=== PATIENT | female | born 1955 | race Caucasian/White ===

== ENCOUNTER → 2016-10-29 | Outpatient (CLI) | payer OTHER ==
[~2016-10-29] MED LIST: AMLO-114 PO; CHOL100027 PO; FURO-85 PO; METO50TA16 PO; ZNT/150 PO
--- NOTE | 2016-10-29 17:14 | DIAGNOSTIC IMAGING REPORT ---
MRI brain BRAIN W/O FOR MS CLINICAL HISTORY: DEMYELINATING DISORDER mental status change TECHNIQUE: Multiaxial MRI acquisition COMPARISON STUDY: 03/05/2016 FINDINGS: Unchanged exam. No evidence for an acute ischemic process. FLAIR imaging demonstrates several very small subcortical foci of increased signal within the frontal lobe regions. These do not appear to be suggestive of a demyelinating disorder. Patient with a history of chronic headache versus age-related chronic small vessel change is more likely. The ventricular system is midline. Internal artery canals are symmetric. Structures the sella and parasellar region are unremarkable. IMPRESSION: 1. Findings of minimal chronic small vessel change/chronic headache.. 2. Otherwise normal study 3. No change from the prior exam. Electronically signed by: Naun Acharya M.D. 10/29/2016 5:13 PM Dictated Date/Time: 10/29/2016 5:09 PM
--- NOTE | 2016-10-29 17:34 | DIAGNOSTIC IMAGING REPORT ---
CERVICAL SPINE MRI HISTORY: Demyelinating disorder DEMYELINATING DISORDER TECHNIQUE: Multiplanar multisequence MRI of the cervical spine was performed without the use of contrast. COMPARISON STUDY: 03/05/2016 FINDINGS: No significant change from the prior study. Reversal of normal cervical curvature. Degenerative disc changes throughout. Mild reactive bone marrow edema at the C7-T1 vertebral bodies on a degenerative basis. Increased signal and of myelomalacia posterior lateral aspect of the cervical cord at C4-C5 unchanged in the prior study. No evidence for compression deformity. C2-C3: No significant central canal or neural foraminal narrowing. C3-C4: No significant central canal or neural foraminal narrowing. C4-C5: Mild broad-based bulging disc. Unchanged in the prior exam. Focal myelomalacia posterior lateral aspect of the thoracic cord at this level. This is unchanged. C5-C6: Broad-based bulging disc mildly posterior disc herniation with mild impact anterior aspect of the thoracic cord.. Unchanged from the prior study. No significant impact upon the cervical cord. C6-C7: Right base bulging disc also unchanged. C7-T1: Broad-based bulging disc unchanged T1-T2 broad-based left central disc herniation. Narrowing left neural foramina. Mild narrowing right neuroforamina. Unchanged from the prior study. IMPRESSION: 1. Unchanged exam from the prior study. 2. Multilevel bulging disc components with moderate multilevel narrowing of the neural foramina. 3. Focal area of myelomalacia posterior thoracic cord C4-C5 unchanged. 4. No new or interval process. Electronically signed by: Naun Acharya M.D. 10/29/2016 5:33 PM Dictated Date/Time: 10/29/2016 5:26 PM
== END | disposition home or self-care (01) ==
LOC: C.MRIBC 15:49
PROVIDERS: ATTEND Physician Assistant
DX: G37.9 Demyelinating disease of central nervous system, unspecified (principal); M47.12 Other spondylosis with myelopathy, cervical region; M47.22 Other spondylosis with radiculopathy, cervical region

== ENCOUNTER 2025-03-02 12:56 | Observation (INO) ==
--- NOTE | 2025-03-02 13:17 | Emergency Department Note ---
Impression & Plan Neurological symptoms, Hypertension ED Provider Note CHIEF COMPLAINT: Neurosymptoms HISTORY OF PRESENTING ILLNESS: The patient is a pleasant 69-year-old female with past medical history of MS, who arrives to the emergency department for evaluation neurosymptoms. The patient reports she began to have a right sided headache, behind the right eye 2 days ago. She states the symptoms seem to improve on the right side, however then this morning noted a shocking pain in the left upper extremity with a frontal headache. She reports her left upper extremity feels weak. She states she has a history of MS. she also reports shortness of breath with minimal exertion, such as walking, which is new. She reports no use of anticoagulation, she denies history of blood clots. She reports no chest pain, abdominal pain, nausea or vomiting. She denies fevers. She also reports her blood pressure has been high, and her PCP started her on a new blood pressure medication. She states when she had the symptoms, she contacted them and they informed her to discontinue this medication as they were concerned this may be the cause of her symptoms. She states it is difficult to determine if she has other neurodeficit due to her chronic weakness, and loss of sensation in her upper and lower extremities from her MS. She reports headache is constant, and aching. She states no pain currently in the left upper extremity. REVIEW OF SYSTEMS: See HPI for pertinent positives and pertinent negatives. ALLERGIES: See below MEDICATIONS: See below PAST MEDICAL HISTORY: See below PHYSICAL EXAM: VITALS: Vitals are noted on the nurse's note and reviewed by myself. Patient currently hypertensive, with otherwise stable vital signs. GENERAL: 69-year-old female, in no acute distress, nondiaphoretic, obese. SKIN: The skin was without rashes, erythema, edema, or bruising. HEAD: Normocephalic atraumatic. EYES: Pupils equal round and reactive to light and accommodation. Conjunctivae without injection, sclerae without icterus. Extraocular movements intact. MOUTH: Mucous membranes moist. No tonsillar hypertrophy. Pharynx without erythema or exudate. Uvula midline. Airway patent. Tongue does not deviate. NECK: Supple without nuchal rigidity. No lymphadenopathy. Cervical spine is nontender. No JVD. HEART: Regular rate and rhythm without murmurs gallops or rubs. LUNGS: Clear to auscultation bilaterally without wheezes, rales or rhonchi. No retractions or accessory muscle use. ABDOMEN: Positive bowel sounds x 4. Soft, nontender, without masses or organomegaly. Milian sign negative. No guarding or rebound tenderness. MUSCULOSKELETAL: No muscle atrophy, erythema, or edema noted. Strength 5/5 throughout. NEURO: Patient was alert and oriented to person place and time. No focal neurological deficits. NIHSS 2, dysarthria, and sensation. Patient has dysarthria at baseline due to patient being deaf. DIFFERENTIAL DIAGNOSIS: Infection, dehydration, metabolic abnormality, hypo/hyperglycemia, electrolyte disturbance, anemia, hypoxia, cardiac sources, intracerebral event, toxicologic, neurologic, MS flare, as well as other pathologies. ED COURSE AND MEDICAL DECISION MAKING: MEDICATIONS GIVEN: Lopressor 5 mg IVP MONITOR: Continuous patient monitor: Order was placed for continuous patient monitor. Patient was placed on the patient monitor and continuous pulse ox. Patient was noted to be in normal sinus rhythm at an initial rate of 67 bpm per my interpretation. EKG: EKG was interpreted by myself as normal sinus rhythm at a rate of 64 bpm, with a left anterior fascicular block, new from previous EKG performed on September 2014. INTERPRETATION OF LABS: I interpreted the labs with full lab results as below in the lab section of this note. Pertinent lab results discussed in the MDM section below. INTERPRETATION OF IMAGING: Imaging studies were interpreted by myself and read by radiology as per the imaging section of this note. CHRONIC MEDICAL/SOCIAL CONDITIONS AFFECTING CARE: Multiple sclerosis MDM SUMMARY: The patient is a pleasant, 69-year-old female who arrives to the emergency department for evaluation of the above-stated complaint. Saline lock was established, stroke workup was obtained. CBC shows no leukocytosis, no anemia. Coags within normal limits. CMP shows no concerning findings. Magnesium 1.9. Troponin 5.9. EKG per my interpretation as above. CT imaging of the head shows no acute findings. CTA imaging of the head and neck show no evidence of hemorrhage or mass effect, no other concerning findings. Chest CTA included in patient's workup due to complaint of shortness of breath with exertion, and patient would already be receiving contrast with head and neck CT imaging. CTA imaging of the chest shows no pulmonary embolism, no acute intrathoracic abnormality, and there is a small hiatal hernia noted. Patient's blood pressure remained high during her stay. She was provided 5 mg of IV Lopressor in an attempt to reduce her pressure which was unsuccessful. I spoke with Dr. Loomis from the [facility] hospitalist group, regarding the patient, and the likely need for MRI imaging. Dr. Loomis agreed to evaluate and admit the patient for further workup. Please refer to her documentation for further patient workup and care. DIAGNOSIS: Neurosymptoms, hypertension The patient's case was discussed with Dr. Ty, who agreed with my evaluation and treatment plan. The chart was completed utilizing [employer] voice recognition software. Grammatical errors, random word insertions, pronoun errors, and incomplete sentences are an occasional consequence of this system due to software limitations, ambient noise, and hardware issues. Any formal questions or concerns about the content, text, or information contained within the body of this dictation should be directly addressed to the provider for clarification. Past Med/Surg History Problem List (Updated 03/02/25 @ 16:41 by ANJEL Todd) Hypertension (Acute) Neurological symptoms (Acute) Pre-diabetes Hypertension Fatigue Hepatomegaly Multiple sclerosis (~2014) per pt, not active, no treatment currently, follows with Dr. 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 Mother , Passed young after child No problems noted. Father , Passed age 63 of surgical complication Lung cancer Daughter Benign hypertension Daughter No problems noted. Son Benign hypertension Denies family history of Ovarian cancer Prostate cancer Myocardial infarction Breast cancer Colorectal cancer Social History Smoking Status: Former smoker Tobacco Type: Cigarettes Age Started Using Tobacco: 20; Age Quit Using Tobacco: 64; packs per day: 0.5; Cigarettes Per Day: 1 PPD; Second Hand Exposure: No; Do You Dip or Chew Tobacco: No; Hx Alcohol Use: Yes Alcohol type: wine Hx Substance Use: No Preferred Language: Venezuelan Communication Ability: Effective Visual Impairment: No Limitations Hearing Ability: Human Resource Statistician Required: No Beliefs That Will Affect Care: None marital status: Current Living Situation: Alone current occupational status: disabled How many Children do You have: 3 Feels Safe at Home: Yes Childhood Exposure to Second-Hand Smoke: Yes Diet: regular caffeine: Yes (Pepsi - 4 cans/day ) during the past year weight has: remained stable Dental Care, Regularly: Yes Physical Activity Frequency: Does not Exercise Seatbelt Use: always Sunscreen Use: No Assistive Devices: Cane and Other Allergies Allergies Allergy/AdvReac Type Severity Reaction Status Date / Time gabapentin Allergy Intermediate MOOD SWINGS Verified 03/02/25 15:33 lisinopril Allergy Intermediate Edema Verified 03/02/25 15:33 morphine Allergy Intermediate Heart races Verified 03/02/25 15:33 naproxen Allergy Intermediate Unknown Verified 03/02/25 15:33 paroxetine Allergy Intermediate MOOD SWINGS Verified 03/02/25 15:33 pregabalin [From Lyrica] Allergy Intermediate Unknown Verified 03/02/25 15:33 topiramate Allergy Intermediate MOOD SWINGS Verified 03/02/25 15:33 ibuprofen Allergy Mild Heart races Verified 03/02/25 15:33 salicylates Allergy Unknown Unknown Verified 03/02/25 15:33 Sulfa (Sulfonamide Allergy Unknown Rash Verified 03/02/25 15:33 Antibiotics) lidocaine AdvReac Severe Throat Verified 03/02/25 15:33 Swelling procaine AdvReac Severe THROAT Verified 03/02/25 15:33 SWELLING spironolactone AdvReac Severe muscle Verified 03/02/25 15:33 cramping hydralazine AdvReac Intermediate Tachycardia Verified 03/02/25 15:33 amlodipine AdvReac Mild edema Verified 03/02/25 15:33 gadobutrol AdvReac Mild VOMITING Verified 03/02/25 15:33 Home Meds Home Medications Medication Instructions Recorded Confirmed cholecalciferol (vitamin D3) 125 125 mcg PO DAILY 11/06/24 03/02/25 mcg (5,000 unit) capsule methocarbamol 750 mg tablet 750 mg PO TID PRN Muscle Spasm 01/07/25 03/02/25 furosemide 20 mg tablet 20 mg PO DAILY PRN Swelling 03/02/25 03/02/25 Previous Rx's Medication Instructions Recorded metoprolol tartrate 50 mg tablet 50 mg PO BID #180 tabs 11/12/24 omeprazole 40 mg capsule,delayed 40 mg PO QAM #90 caps 02/15/25 release Results & Data (ED) Vital Signs Vital Signs - 24 hr 03/02/25 12:56 03/02/25 13:37 03/02/25 14:06 Temperature 36.7 C Temperature Source Temporal Artery Scan Pulse Rate 67 67 Pulse Rate [Finger] Pulse Rate from SpO2 Sensor Respiratory Rate 20 Blood Pressure 181/132 H 182/107 H Blood Pressure [Right Arm] Blood Pressure Mean 148 136 Blood Pressure Mean [Right Arm] Pulse Oximetry 94 Oxygen Delivery Method Room Air Sepsis New/Unexplained Change in Mental Status N/A Sepsis Action Taken by Nursing No Action Required 03/02/25 14:09 03/02/25 14:30 03/02/25 14:51 Temperature Temperature Source Pulse Rate 62 68 68 Pulse Rate [Finger] Pulse Rate from SpO2 Sensor 62 69 69 Respiratory Rate 20 18 21 Blood Pressure 182/107 H 163/92 H 214/104 H Blood Pressure [Right Arm] Blood Pressure Mean 132 131 140 Blood Pressure Mean [Right Arm] Pulse Oximetry 93 93 93 Oxygen Delivery Method Sepsis New/Unexplained Change in Mental Status Sepsis Action Taken by Nursing 03/02/25 14:57 03/02/25 15:23 03/02/25 16:37 Temperature Temperature Source Pulse Rate 64 64 Pulse Rate [Finger] 66 Pulse Rate from SpO2 Sensor 64 Respiratory Rate 16 18 Blood Pressure 207/100 H 220/89 H Blood Pressure [Right Arm] 206/108 H Blood Pressure Mean 135 Blood Pressure Mean [Right Arm] 140 Pulse Oximetry 95 92 Oxygen Delivery Method Room Air Sepsis New/Unexplained Change in Mental Status Sepsis Action Taken by Assisted Medications Current Medication List: was personally reviewed by me Laboratory Data Attestation: I reviewed the patient's lab results. 03/02/25 13:20 03/02/25 13:20 Lab Results 03/02/25 Range/Units 13:20 WBC 8.19 (4.8-10.8) K/ul RBC 5.42 H (4.20-5.40) M/uL Hgb 15.0 (12.0-16.0) g/dl Hct 45.5 (37.0-47.0) % MCV 83.9 (80.0-100.0) fL MCH 27.7 (25.0-34.0) pg MCHC 33.0 (32.0-36.0) g/dL RDW Std Deviation 42.0 (36.4-46.3) fL RDW Coeff of Polina 13.8 (11.5-14.5) % Plt Count 250 (130-400) K/uL MPV 9.9 (9.4-12.4) fL Immature Gran % (Auto) 0.4 % Neut % (Auto) 69.4 % Lymph % (Auto) 20.6 % [place] % (Auto) 6.7 % Eos % (Auto) 2.3 % Baso % (Auto) 0.6 % Neut # (Auto) 5.68 (1.40-6.50) K/uL Lymph # (Auto) 1.69 (1.20-3.40) K/uL [place] # (Auto) 0.55 (0.11-0.59) K/uL Eos # (Auto) 0.19 (0.00-0.50) K/uL Baso # (Auto) 0.05 (0.00-0.20) K/uL Immature Gran # (Auto) 0.03 (0.01-0.20) K/uL PT 10.7 (9.0-12.0) Seconds INR 1.0 (0.9-1.1) APTT 24 (21-31) Seconds PTT Ratio 0.9 Sodium 141 (136-145) mmol/L Potassium 3.9 (3.5-5.1) mmol/L Chloride 106 (98-107) mmol/L Carbon Dioxide 27 (21-32) mmol/L Anion Gap 8 (3-11) BUN 11 (6-23) mg/dl Creatinine 0.65 (0.6-1.2) mg/dl Est Cr Clr Drug Dosing Not Reportable eGFR 96.44 BUN/Creatinine Ratio 16.9 (10-20) Glucose 108 H (70-99(Fasting)) mg/dl Calcium 9.1 (8.6-10.3) mg/dl Magnesium 1.9 (1.7-2.4) mg/dl Total Bilirubin 0.8 (0.2-1.0) mg/dl AST 18 (13-39) U/L ALT 14 (7-52) U/L Alkaline Phosphatase 74 (34-104) U/L Troponin I High Sens 5.9 (0-14) pg/ml Total Protein 7.0 (6.0-8.3) gm/dl Albumin 3.9 (3.4-5.0) gm/dl Globulin 3.1 (2.5-4.0) gm/dl Albumin/Globulin Ratio 1.3 (0.9-2) Administered Medications Discontinued Medications Ioversol (Optiray 320 125ml) 118 ml IV ONCE ONE Stop: 03/02/25 14:56 Last Admin: 03/02/25 14:55 Dose: 118 ml Documented By: [facility] Metoprolol Tartrate (Metoprolol Tartrate 1 Mg/Ml Vial) 5 mg IV NOW STA Stop: 03/02/25 14:33 Last Admin: 03/02/25 15:23 Dose: 5 mg Documented By: Imaging Data Attestation: I personally reviewed and interpreted this imaging study as follows: Radiologist's Impression: Head CT 03/02/25 13:28 CT head/brain wo con CLINICAL HISTORY: neuro deficit, acute stroke suspected. TECHNIQUE: Multiple axial CT images of the head were obtained without contrast. A dose lowering technique was utilized adhering to the principles of ALARA. COMPARISON: None FINDINGS: There is mild motion artifact. No intracranial hemorrhage seen. No mass effect, midline shift, or hydrocephalus. No skull fracture seen. Visualized paranasal sinuses and mastoid air cells are clear. IMPRESSION: No acute findings. ACT 112: Negative or not required by law. The above report was generated using voice recognition software. It may contain grammatical, syntax or spelling errors. Electronically signed by: Cedric Roy M.D. 03/02/2025 3:01 PM Head CTA 03/02/25 13:28 CT ANGIOGRAM OF THE BRAIN CLINICAL HISTORY: Neurological deficit. Stroke like symptoms COMPARISON STUDY: CT of the brain dated 03/02/2025. TECHNIQUE: Following the IV administration of 118 cc of Optiray 320, CT angiogram of the brain was performed from the skull base to the vertex. Images are reviewed in the axial, sagittal, and coronal planes. 3-D MIPS images are created and assessed. IV contrast was administered without complication. A dose lowering technique was utilized adhering to the principles of ALARA. FINDINGS: Brain parenchyma: There is no evidence of hemorrhage or mass effect noting angiographic phase technique. There is no evidence of enhancing mass lesion on the angiogram phase images. No extra-axial fluid collection is seen. Macias-white matter differentiation is preserved. Ventricles, sulci, and cisterns: Normal in configuration. CT angiogram of the brain: There is atherosclerotic calcification of the cavernous carotid arteries. The internal carotid arteries at the skull base are patent, as are the anterior and middle cerebral arteries. The vertebrobasilar system and posterior cerebral arteries are patent. The vertebral arteries are codominant. There is a right posterior communicating indicating artery. There is no aneurysm, high-grade stenosis, or focal vessel cutoff identified throughout the intracranial circulation. Dural sinuses: Clear as visualized. Orbits: The bony orbits are intact. The orbital contents are normal as visualized. Sinuses and mastoids: The paranasal sinuses are clear. The mastoid air cells are well pneumatized. Calvarium: Unremarkable. IMPRESSION: 1. There is no evidence of hemorrhage or mass effect noting angiographic phase technique. 2. Unremarkable CT angiogram of the brain. ACT 112: Negative or not required by law. Electronically signed by: Jose Carlos Oneill M.D. 03/02/2025 3:19 PM Neck CTA 03/02/25 13:28 CT angio neck with con CLINICAL HISTORY: 69 years-old Female with neuro deficit, acute stroke suspected. Acute stroke like symptoms COMPARISON STUDY: Head CT and CTA head studies of same day TECHNIQUE: Following the IV administration of 118 mL of Optiray, CT angiogram of the neck was performed from the aortic arch to the skull base. Images are reviewed in the axial, sagittal, and coronal planes. 3-D MIPS images are created and assessed. IV contrast was administered without complication. All measurements were calculated based on NASCET criteria. A dose lowering technique was utilized adhering to the principles of ALARA. FINDINGS: Patent common carotid arteries. Mild atherosclerosis of the carotid bulbs cause less than 50% stenosis. Patent and codominant vertebral arteries. Lung apices are clear. Unremarkable soft tissues. Multilevel degenerative changes of the cervical spine. No acute fracture is seen. IMPRESSION:Unremarkable CTA of the neck. ACT 112: Negative or not required by law. The above report was generated using voice recognition software. It may contain grammatical, syntax or spelling errors. Electronically signed by: Srikanth Hilliard M.D. 03/02/2025 3:07 PM Chest CTA 03/02/25 13:29 CT angio chest PE protocol CT DOSE: 2461.08 mGy.cm HISTORY: 69 years-old Female with PE. Acute shortness of breath TECHNIQUE: Multiple CTA images of the chest were obtained after the intravenous administration of 118 ml Optiray. Coronal and sagittal MIPS were obtained from the axial data set and were submitted for review. All measurements were obtained according to NASCET criteria. A dose lowering technique was utilized adhering to the principles of ALARA. COMPARISON: None. FINDINGS: CTA: There is adequate opacification of the pulmonary arteries to the level of the subsegmental branches without convincing evidence of acute pulmonary embolism. Mild coronary artery calcifications. Fusiform ectasia of the ascending thoracic aorta, 3.9 cm. Heart size is normal. CT CHEST: No dominant thyroid nodule is seen. No pathologically adenopathy by CT size criteria. Mild bronchial wall thickening. Tiny low suspicion pulmonary nodules measure up to 3 mm within the lung apices. There is no pneumothorax, pleural effusion or focal airspace consolidation. The imaged upper abdominal structures are unremarkable. Small hiatal hernia. The osseous structures appear intact. IMPRESSION: 1. No acute intrathoracic abnormality identified. 2. No pulmonary emboli. 3. Small hiatal hernia. ACT 112: Negative or not required by law. The above report was generated using voice recognition software. It may contain grammatical, syntax or spelling errors. Electronically signed by: Srikanth Hilliard M.D. 03/02/2025 3:12 PM Discharge Plan Visit Data Chief Complaint: TIA Symptoms Stated Complaint: SHOCKING THROUGH L ARM ED Provider: Mariana Ty ED Midlevel Provider: Lynda Cho Discharge Problem: Neurological symptoms, Hypertension Patient Disposition: Admitted As Inpatient Condition: Fair Forms Stand Alone Forms: [facility] Prescriptions Prescriptions: No Action metoprolol tartrate 50 mg tablet 50 mg PO BID Qty: 180 1RF omeprazole 40 mg capsule,delayed release(DR/EC) 40 mg PO QAM Qty: 90 1RF cholecalciferol (vitamin D3) 125 mcg (5,000 unit) capsule 125 mcg PO DAILY methocarbamol 750 mg tablet 750 mg PO TID PRN (Reason: Muscle Spasm) furosemide 20 mg tablet 20 mg PO DAILY PRN (Reason: Swelling) Referrals Referrals: Axel Underwood DO [Primary Care Provider] -
[2025-03-02 13:43] LABS: Hematocrit (blood only) 45.5 % (37.0-47.0); Hemoglobin 15.0 g/dl (12.0-16.0); Immature Granulocytes # (auto) 0.03 K/uL (0.01-0.20); Immature Granulocytes % (auto) 0.4 %; Mean Corpuscular Hemoglobin 27.7 pg (25.0-34.0); Mean Corpuscular Volume 83.9 fL (80.0-100.0); Platelet Count 250 K/uL (130-400); RDW Standard Deviation 42.0 fL (36.4-46.3); Red Blood Count 5.42 M/uL (4.20-5.40); White Blood Count 8.19 K/ul (4.8-10.8)
[2025-03-02 14:00] LABS: Alanine Aminotransferase 14 U/L (7-52); Albumin Globulin Ratio 1.3 (0.9-2); Albumin Level 3.9 gm/dl (3.4-5.0); Alkaline Phosphatase 74 U/L (34-104); Anion Gap 8 (3-11); Bilirubin,Total 0.8 mg/dl (0.2-1.0); Blood Urea Nitrogen 11 mg/dl (6-23); Calcium 9.1 mg/dl (8.6-10.3); Carbon Dioxide 27 mmol/L (21-32); Chloride 106 mmol/L (98-107); Globulin 3.1 gm/dl (2.5-4.0); Glucose 108 mg/dl (70-99(Fasting)); Magnesium 1.9 mg/dl (1.7-2.4); Potassium 3.9 mmol/L (3.5-5.1); Sodium 141 mmol/L (136-145); Total Protein 7.0 gm/dl (6.0-8.3)
[2025-03-02 14:08] LABS: INR 1.0 (0.9-1.1); Partial Thromboplastin Time 24 Seconds (21-31); Prothrombin Time 10.7 Seconds (9.0-12.0)
[2025-03-02] MEDS: OPTIRAY 320 125ml IV ONE (14:55)
--- NOTE | 2025-03-02 14:55 | Electrocardiogram Report ---
Test Reason : Blood Pressure : */* mmHG Vent. Rate : 64 BPM Atrial Rate : 64 BPM P-R Int : 202 ms QRS Dur : 88 ms QT Int : 434 ms P-R-T Axes : 76 -56 12 degrees QTcB Int : 447 ms Normal sinus rhythm Left anterior fascicular block Moderate voltage criteria for LVH, may be normal variant ( R in aVL ) Abnormal ECG When compared with ECG of 28-Sep-2014 15:09, Left anterior fascicular block is now Present Confirmed by Cam Scott ([id number]) on 03/02/2025 2:55:00 PM Referred By: REFERRED SELF Confirmed By: Cam Scott
--- NOTE | 2025-03-02 15:02 | CT Scan Report ---
CT head/brain wo con CLINICAL HISTORY: neuro deficit, acute stroke suspected. TECHNIQUE: Multiple axial CT images of the head were obtained without contrast. A dose lowering tech nique was utilized adhering to the principles of ALARA. COMPARISON: None FINDINGS: There is mild motion artifact. No intracranial hemorrhage seen. No mass effect, midline fito ft, or hydrocephalus. No skull fracture seen. Visualized paranasal sinuses and mastoid air cells are clear. IMPRESSION: No acute findings. ACT 112: Negative or not required by law. The above report was generated using voice recognition software. It may contain grammatical, syntax o r spelling errors. Electronically signed by: Cedric Roy M.D. 03/02/2025 3:01 PM
--- NOTE | 2025-03-02 15:09 | CT Scan Report ---
CT angio neck with con CLINICAL HISTORY: 69 years-old Female with neuro deficit, acute stroke suspected. Acute stroke lik e symptoms COMPARISON STUDY: Head CT and CTA head studies of same day TECHNIQUE: Following the IV administration of 118 mL of Optiray, CT angiogram of the neck was perform ed from the aortic arch to the skull base. Images are reviewed in the axial, sagittal, and coronal pl anes. 3-D MIPS images are created and assessed. IV contrast was administered without complication. Al l measurements were calculated based on NASCET criteria. A dose lowering technique was utilized adhe ring to the principles of ALARA. FINDINGS: Patent common carotid arteries. Mild atherosclerosis of the carotid bulbs cause less than 5 0% stenosis. Patent and codominant vertebral arteries. Lung apices are clear. Unremarkable soft tissu es. Multilevel degenerative changes of the cervical spine. No acute fracture is seen. IMPRESSION:Unremarkable CTA of the neck. ACT 112: Negative or not required by law. The above report was generated using voice recognition software. It may contain grammatical, syntax o r spelling errors. Electronically signed by: Srikanth Hilliard M.D. 03/02/2025 3:07 PM
--- NOTE | 2025-03-02 15:15 | CT Scan Report ---
CT angio chest PE protocol CT DOSE: 2461.08 mGy.cm HISTORY: 69 years-old Female with PE. Acute shortness of breath TECHNIQUE: Multiple CTA images of the chest were obtained after the intravenous administration of 118 ml Optiray. Coronal and sagittal MIPS were obtained from the axial data set and were submitted for review. All measurements were obtained according to NASCET criteria. A dose lowering technique was u tilized adhering to the principles of ALARA. COMPARISON: None. FINDINGS: CTA: There is adequate opacification of the pulmonary arteries to the level of the subsegmental branches w ithout convincing evidence of acute pulmonary embolism. Mild coronary artery calcifications. Fusiform ectasia of the ascending thoracic aorta, 3.9 cm. Heart size is normal. CT CHEST: No dominant thyroid nodule is seen. No pathologically adenopathy by CT size criteria. Mild bronchial wall thickening. Tiny low suspicion pulmonary nodules measure up to 3 mm within the lung apices. Ther e is no pneumothorax, pleural effusion or focal airspace consolidation. The imaged upper abdominal structures are unremarkable. Small hiatal hernia. The osseous structures appear intact. IMPRESSION: 1. No acute intrathoracic abnormality identified. 2. No pulmonary emboli. 3. Small hiatal hernia. ACT 112: Negative or not required by law. The above report was generated using voice recognition software. It may contain grammatical, syntax o r spelling errors. Electronically signed by: Srikanth Hilliard M.D. 03/02/2025 3:12 PM
--- NOTE | 2025-03-02 15:21 | CT Scan Report ---
CT ANGIOGRAM OF THE BRAIN CLINICAL HISTORY: Neurological deficit. Stroke like symptoms COMPARISON STUDY: CT of the brain dated 03/02/2025. TECHNIQUE: Following the IV administration of 118 cc of Optiray 320, CT angiogram of the brain was pe rformed from the skull base to the vertex. Images are reviewed in the axial, sagittal, and coronal pl anes. 3-D MIPS images are created and assessed. IV contrast was administered without complication. A dose lowering technique was utilized adhering to the principles of ALARA. FINDINGS: Brain parenchyma: There is no evidence of hemorrhage or mass effect noting angiographic phase techniq ue. There is no evidence of enhancing mass lesion on the angiogram phase images. No extra-axial fluid collection is seen. Macias-white matter differentiation is preserved. Ventricles, sulci, and cisterns: Normal in configuration. CT angiogram of the brain: There is atherosclerotic calcification of the cavernous carotid arteries. The internal carotid arteries at the skull base are patent, as are the anterior and middle cerebral a rteries. The vertebrobasilar system and posterior cerebral arteries are patent. The vertebral arterie s are codominant. There is a right posterior communicating indicating artery. There is no aneurysm, h igh-grade stenosis, or focal vessel cutoff identified throughout the intracranial circulation. Dural sinuses: Clear as visualized. Orbits: The bony orbits are intact. The orbital contents are normal as visualized. Sinuses and mastoids: The paranasal sinuses are clear. The mastoid air cells are well pneumatized. Calvarium: Unremarkable. IMPRESSION: 1. There is no evidence of hemorrhage or mass effect noting angiographic phase technique. 2. Unremarkable CT angiogram of the brain. ACT 112: Negative or not required by law. Electronically signed by: Jose Carlos Oneill M.D. 03/02/2025 3:19 PM
[2025-03-02] MEDS: METOPROLOL TARTRATE 1 MG/ML VIAL IV STA ×2 (15:23→16:58)
--- NOTE | 2025-03-02 15:40 | History & Physical Report ---
Date of Service March 02, 2025 Assessment & Plan (1) Left arm pain: (2) Hypertension: (3) Classic migraine with aura: (4) Multiple sclerosis: Plan This patient is a 69-year-old female with a history of uncontrolled HTN, MS, H/o transverse myelitis with left-sided spastic hemiparesis, migraines, obesity, prediabetes, lumbar radiculopathy, OA, anxiety, congenital deafness (reads lips), GERD, and ductal carcinoma in situ of left breast, who p/w with left upper extremity shocklike pain and weakness/heaviness lasting approximately 5 min. Also with headache x 2 days and severely elevated BPs. She is admitted for a workup for CVA and for hypertensive emergency. #LUE pain/weakness-could be TIA vs MS flare vs Cervical radiculopathy given chronic neck pain and spasms. CTA Chest negative. Cardiac ischemic eval negative thus far. -admit to [facility] for tele monitoring -control BP -MRI brain and C-spine ordered with IV ativan for anxiety before MRI -ECHO with bubble study -Check lipid panel, A1C in AM and start statin if thought to be TIA vs CVA -Neuro consult for further eval -PT/OR/Speech evals -neuro checks and NIHSS qshift #Hypertensive emergency/HTN-BPs severely elevated and may have caused TIA with LUE weakness/pain. Follows with HTN clinic. Has had numerous allergies/adverse side effects to various drugs.Currently at home on metoprolol 50mg po bid and eplerenone which was stopped on day of admission for headache. Has had extensive secondary HTN workup as outpt and no cause found. -increase metoprolol to 75mg po bid -add amlodipine 5mg po x 1 now and then start 2.5mg po qAM --> in the past, was on this for 30 years and had ankle swelling at high doses the last 6 yearshence it was discontinued. However, has intolerances/allergies so not many other options left -monitor BPs #H/O MS/Migraines/spastic hemiparesis-follows with Neurology, has been migraine free for over a year until now. Eplerenone may have triggered her migraine but hard to say -acetaminophen prn headache -continue muscle relaxer prn #Obesity BMI 38.9/Prediabetes-no acute issues -check HgbA1C in AM -start BSGs if has hyperglycemia on AM labs -needs weight loss #GERD-continue PPI DVT proph-Lovenox Dispo-bring in on observation to PCU History of Present Illness Chief Complaint: Left upper extremity pain and weakness Primary Care Provider: Axel Underwood, This patient is a 69-year-old female with a history of uncontrolled HTN, MS, H/o transverse myelitis with left-sided spastic hemiparesis, migraines, obesity, prediabetes, lumbar radiculopathy, OA, anxiety, congenital deafness (reads lips), and ductal carcinoma in situ of left breast, who presents to the ED with left upper extremity shocklike pain and weakness/heaviness lasting approximately 5 min. Her symptoms started at 11 AM on the day of admission and she presented to the ED at 1300. She was sitting at rest when symptoms occurred and it went away with no intervention. She does report having a headache the last 2 days slightly different from her usual migraines. She has not had a bad headache like this in over a year. She started taking eplerenone about 1 mo ago and has been feeling unwell for the last 2 weeks. Her BPs have been in the 190s systolic for the last month and she called into her HTN provider's office who recommended she stop taking the eplerenone in case was causing her the headache. She also reports some SOB today. In the ED, her CTA head and neck, CT head were negative, but BP was severely elevated at 220 systolic and 130 diastolic. She was given IV metoprolol and had some mild improvement in her BP.ECG was without ischemic changes and troponin negative. She will be admitted for a workup for CVA and for hypertensive emergency. Allergies Allergy/AdvReac Type Severity Reaction Status Date / Time gabapentin Allergy Intermediate MOOD SWINGS Verified 03/02/25 15:33 lisinopril Allergy Intermediate Edema Verified 03/02/25 15:33 morphine Allergy Intermediate Heart races Verified 03/02/25 15:33 naproxen Allergy Intermediate Unknown Verified 03/02/25 15:33 paroxetine Allergy Intermediate MOOD SWINGS Verified 03/02/25 15:33 pregabalin [From Lyrica] Allergy Intermediate Unknown Verified 03/02/25 15:33 topiramate Allergy Intermediate MOOD SWINGS Verified 03/02/25 15:33 ibuprofen Allergy Mild Heart races Verified 03/02/25 15:33 salicylates Allergy Unknown Unknown Verified 03/02/25 15:33 Sulfa (Sulfonamide Allergy Unknown Rash Verified 03/02/25 15:33 Antibiotics) lidocaine AdvReac Severe Throat Verified 03/02/25 15:33 Swelling procaine AdvReac Severe THROAT Verified 03/02/25 15:33 SWELLING spironolactone AdvReac Severe muscle Verified 03/02/25 15:33 cramping hydralazine AdvReac Intermediate Tachycardia Verified 03/02/25 15:33 amlodipine AdvReac Mild edema Verified 03/02/25 15:33 gadobutrol AdvReac Mild VOMITING Verified 03/02/25 15:33 Home Medications Medication Instructions Recorded Confirmed Type cholecalciferol (vitamin D3) 125 125 mcg PO DAILY 11/06/24 03/02/25 History mcg (5,000 unit) capsule metoprolol tartrate 50 mg tablet 50 mg PO BID #180 tabs 11/12/24 03/02/25 Rx methocarbamol 750 mg tablet 750 mg PO TID PRN Muscle Spasm 01/07/25 03/02/25 History omeprazole 40 mg capsule,delayed 40 mg PO QAM #90 caps 02/15/25 03/02/25 Rx release furosemide 20 mg tablet 20 mg PO DAILY PRN Swelling 03/02/25 03/02/25 History Past Med/Surg History Problem List Left arm pain Hypertension (Acute) Neurological symptoms (Acute) Pre-diabetes Hypertension Fatigue Hepatomegaly Multiple sclerosis (~2014) per pt, not active, no treatment currently, follows with Dr. 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 Mother , Passed young after child No problems noted. Father , Passed age 63 of surgical complication Lung cancer Daughter Benign hypertension Daughter No problems noted. Son Benign hypertension Denies family history of Ovarian cancer Prostate cancer Myocardial infarction Breast cancer Colorectal cancer Social History Smoking Status: Former smoker Tobacco Type: Cigarettes Age Started Using Tobacco: 20; Age Quit Using Tobacco: 64; packs per day: 0.5; Cigarettes Per Day: 1 PPD; Second Hand Exposure: No; Do You Dip or Chew Tobacco: No; Hx Alcohol Use: Yes Alcohol type: wine Hx Substance Use: No Preferred Language: Sudanese Communication Ability: Effective Visual Impairment: No Limitations Hearing Ability: Building Principal Required: No Beliefs That Will Affect Care: None marital status: Current Living Situation: Alone current occupational status: disabled How many Children do You have: 3 Other Information That Helps Us Care for You: No Feels Safe at Home: Yes Safety Concerns: Feels Safe At This Time Childhood Exposure to Second-Hand Smoke: Yes Diet: regular caffeine: Yes (Pepsi - 4 cans/day ) during the past year weight has: remained stable Dental Care, Regularly: Yes Physical Activity Frequency: Does not Exercise Seatbelt Use: always Sunscreen Use: No Assistive Devices: Cane, Denture - Upper and Denture - Lower Review of Systems Review of Systems: All systems reviewed & are unremarkable except as noted in HPI & below Physical Exam Constitutional: WD/WN, vitals as above Eyes: PERRL, conjunctivae normal, anicteric sclerae ENMT: external ear and nose normal, oropharynx normal Ears: + hearing impairment Neck: trachea midline, no thyromegaly Respiratory: normal respiratory effort, lungs clear to auscultation Cardiovascular: RRR, no murmur, no edema Chest (Breasts): Chest: normal inspection of chest Gastrointestinal (Abdomen): normal bowel sounds, soft, nontender, no hepatosplenomegaly Musculoskeletal: Extremities: extremities normal to inspection; no cyanosis and no clubbing Skin: no rashes, warm and dry Neurologic: CN's II-XI intact bilaterally (except for hearing loss), moves all extremities and awake; no focal motor deficits Speech / Cognition: no expressive aphasia and normal cognition Motor/Sensory: no tremor, no pronator drift and no sensory deficit Psychiatric: A+Ox3, euthymic affect Lymphatic: no lymphedema Results & Data Results & Data Vital Signs (Past 12 Hours) Vital Signs Temp Pulse Resp BP Pulse Ox O2 Del Method 03/02/25 15:23 64 220/89 H 03/02/25 14:57 64 16 207/100 H 95 03/02/25 14:51 68 21 214/104 H 93 03/02/25 14:30 68 18 163/92 H 93 03/02/25 14:09 62 20 182/107 H 93 03/02/25 14:06 182/107 H 03/02/25 13:37 67 03/02/25 12:56 36.7 C 67 20 181/132 H 94 Room Air Laboratory Results CBC, CMP, Magnesium, PT/PTT/INR, and troponin reviewed Diagnostic Findings CTA Head/neck, CT head, CTA chest reviewed Code Status & VTE Plan Code Status Full code VTE Prophylaxis Plan VTE Prophylaxis will be ordered: Yes PG Care Time/CCT Total # of Minutes Spent Total Time Spent with Patient: Total time spent is greater than 50% in coordination of care (as documented) at patient's floor/unit and/or counseling patient: Coding Level of Care Code 50417 INT INP/OBS CARE 3/75MIN Diagnoses Left arm pain M79.602 Hypertension I10 Classic migraine with aura G43.109 Multiple sclerosis G35
[2025-03-02] MEDS ORDERED: METHOCARBAMOL 750 MG TABLET PO PRN (18:24)
[2025-03-02] MEDS ORDERED: ONDANSETRON INJ 2 MG/ML 2 ML VIAL IV PRN (18:24)
[2025-03-02] MEDS ORDERED: PHARMACIST DISCHARGE MED REC CONSULT PRN (18:24)
[2025-03-02] MEDS: Patient's HEIGHT &/or WEIGHT Needed STA (18:52)
[2025-03-02] MEDS: ENOXAPARIN INJ 40 MG/0.4 ML SYR SQ SCH (19:51)
[2025-03-02] MEDS: ACETAMINOPHEN 325 MG TAB PO PRN (21:25)
[2025-03-02] MEDS: METOPROLOL TARTRATE 25 MG TAB PO SCH (21:25)
--- NOTE | 2025-03-02 23:44 | Magnetic Resonance Report ---
Exam(s): MRI HEAD Without Contrast EXAM: MR Head Without Intravenous Contrast CLINICAL HISTORY: Reason for exam: left arm weakness,r/o CVA,h/o MS. TECHNIQUE: Magnetic resonance images of the head/brain without intravenous contrast in multiple planes. COMPARISON: Prior head CT from March 02, 2025. FINDINGS: Brain: Minimal nonspecific white matter changes. No mass. No hemorrhage. No acute infarct. Ventricles: Unremarkable. No ventriculomegaly. Bones/joints: Unremarkable. No acute fracture. Sinuses: Chronic right ethmoid sinusitis. No acute sinusitis. Mastoid air cells: Unremarkable as visualized. No mastoid effusion. Orbits: Unremarkable as visualized. IMPRESSION: No evidence of acute intracranial pathology. Electronically signed by: Yeni Galeana MD 03/02/25 23:43 PM
--- NOTE | 2025-03-03 00:15 | Magnetic Resonance Report ---
Exam(s): MRI C SPINE EXAM: MR Cervical Spine Without Intravenous Contrast CLINICAL HISTORY: Reason for exam: left arm weakness,pain,h/o MS. TECHNIQUE: Magnetic resonance images of the cervical spine without intravenous contrast in multiple planes. COMPARISON: Prior MRI of the cervical spine from October 29, 2016. FINDINGS: Vertebrae: There are 7 cervical type vertebral bodies with a mild generalized curved to the left and straightening normal cervical lordosis. There is normal vertebral body height and alignment. The bone marrow signal is heterogeneous with reactive changes. No acute fracture. Moderate disc degeneration at C4-5, C5-6, C6-7 and C7-T1 with annular disc bulging Spinal cord: There are multiple white matter lesions in the cervical cord. There is flattening the ventral cord at C4-5 and C5-6. Soft tissues: The cervical flow voids are intact. IMPRESSION: Multiple white matter lesions in the cervical cord consistent with stated diagnosis of multiple sclerosis. No significant change from prior MRI. Recommend postcontrast imaging to evaluate for acute demyelination. Electronically signed by: Yeni Galeana MD 03/03/25 00:15 AM
[2025-03-03] MEDS ORDERED: SODIUM CHLORIDE 0.65% NA SOLN 45 ML (OCEAN) PRN (04:44)
[2025-03-03 06:34] LABS: Hematocrit (blood only) 47.1 % (37.0-47.0); Hemoglobin 15.9 g/dl (12.0-16.0); Immature Granulocytes # (auto) 0.03 K/uL (0.01-0.20); Immature Granulocytes % (auto) 0.3 %; Mean Corpuscular Hemoglobin 28.3 pg (25.0-34.0); Mean Corpuscular Volume 83.8 fL (80.0-100.0); Platelet Count 253 K/uL (130-400); RDW Standard Deviation 42.0 fL (36.4-46.3); Red Blood Count 5.62 M/uL (4.20-5.40); White Blood Count 9.76 K/ul (4.8-10.8)
[2025-03-03 07:12] LABS: Anion Gap 9.0 (3-11); Blood Urea Nitrogen 10.0 mg/dl (6-23); Calcium 9.3 mg/dl (8.6-10.3); Carbon Dioxide 27.0 mmol/L (21-32); Chloride 103.0 mmol/L (98-107); Cholesterol 176.0 mg/dl (0-200); Creatinine Clr Calc Pharmacy 113.6 ml/min; Glucose 111.0 mg/dl (70-99(Fasting)); HDL Cholesterol 53.0 mg/dl; Potassium 4.0 mmol/L (3.5-5.1); Sodium 139.0 mmol/L (136-145); Triglycerides 235.0 mg/dl (0-150)
[2025-03-03 07:46] LABS: Hemoglobin A1C 5.6 % (4.5-5.6)
--- NOTE | 2025-03-03 08:32 | Neurology Consultation ---
Date of Consultation March 03, 2025 Assessment & Plan (1) Left spastic hemiparesis: (2) Hypertension: (3) Multiple sclerosis: (4) Classic migraine with aura: Plan Patient has some neurologic symptoms acutely on March 02. I suspect a cervical radicular issue in the left upper extremity explaining the 5 minutes of left arm pain The patient has a history of cervical spinal cord lesions that appeared in the s and had been stable/same ever since. This has resulted in a chronic left spastic hemiparesis with dysesthesias and numbness. This has been very chronic. Patient has some dysarthria but this is secondary to her lifelong hearing loss and is not new. Patient was given a tentative diagnosis of MS in the and early s. This diagnosis never actually "panned out" and she never did require disease- modifying therapy. 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 Actually, I think her new symptoms could be related to her significant hypertension. Her blood pressure is somewhat better today. Patient has a history of migraine headaches which are improved and stable. The recent hypertension and eplerenone likely triggered her most recent headache event. Overall she has improved and stable from a neurologic standpoint and MRI showed no evidence of stroke. Recommendations: 1. Control blood pressure as you are doing. If amlodipine gives her edema she may be able to take furosemide as needed. 2. Increase activity as able. 3. I see no need for additional neurologic testing or treatment at this time. Treat headache with Tylenol as needed. 4. Follow-up as an outpatient in neurology with neurology PA (2 to 3 weeks). Overall, I spent a total of 60 minutes with this case including review of records, review of MRI films, direct evaluation of the patient at bedside, r eport generation, and discussion of the case with the patient and RN at bedside and Dr. Loomis including differential diagnosis and treatment options. History of Present Illness Reason for Consultation: Patient is a 69-year-old, who I was asked to see at the request of Dr. Loomis for neurologic consultation regarding possible stroke. Requesting Physician: Dr. Loomis Attending Physician: Gracie Loomis MD History of Present Illness I first saw this patient in 2014. She had had a remote history of spinal cord inflammatory lesion in 1996 causing a left spastic hemiparesis. At the time she was told that she had transverse myelitis. In 1998 she had a second area of demyelination in the spinal cord. An MRI of the brain was unremarkable. Lumbar puncture was unremarkable as well. She was told that she possibly had multiple sclerosis but no disease-modifying therapy was ever given to her other than steroids. She was followed by other neurologist over time and had multiple MRIs of the brain which were unremarkable/normal. MRIs of the cervical spine were stable The patient has had chronic left-sided dysesthesias, numbness, and weakness ever since the late . She has a congenital hearing issue and has some dysarthria chronically. The patient had an MRI of the cervical spine in 2017 which showed the lesions as before. She also has diffuse degenerative changes without surgical lesion. MRIs of the brain continued to be unremarkable. I saw her for muscle spasms that occurred left greater than right I had the patient had a longstanding history of migraine headaches. She has had some lumbar radicular pain with some degenerative changes but no surgical lesions. I last saw her September 10, 2024. Her migraines were markedly improved and stable. She had muscle spasms right greater than left side and lumbar radicular pain. Baclofen 10 mg twice a day was initiated. She did not tolerate this medication and discontinued it. The patient has been having issues with hypertension. At least 6 months ago she was taken off amlodipine because of distal edema. It did help her blood pressure. She has tried a number of different medications through her primary care physicians and was put on eplerenone about 3 weeks ago. This gave her some GI issues and she felt that this past weekend she had an increased significant migraine around her right eye. She was short of breath with walking. Medication was stopped the morning of March 02. Later that morning she had an episode of shocklike pain radiating from her shoulder to wrist that lasted about 5 minutes. Her arm felt heavy. She arrived to the emergency room December 30 at 1256 with a temperature of 36.7, pulse 67 and regular, respiratory rate 20, and blood pressure 181/132. On examination she had some dysarthria and decreased sensation on the left side. No other focal abnormalities or new issues were noted. CBC, CHEM profile, and liver profile were unremarkable CT scan of the head was unremarkable. CT angiography of the head and neck were normal without vascular stenoses or anomalies. CTA of the chest was unremarkable and there was no PE or other pulmonary issues MRI of the brain showed minimal old small vessel ischemic disease with no new or active lesions. I reviewed these films. MRI of the cervical spine showed diffuse degenerative changes at multiple levels with focal disc bulge at C5-6. There were lesions in the cord and some cord flattening at C4-5 and C5-6 but all of these changes are similar and unchanged compared to the previous MRI in 2017. Therefore there were no new spinal lesions. I reviewed these films. Today she has a mild right frontal headache. Blood pressure is 189/89. Triglycerides were 235 and total cholesterol 176. Repeat CBC and CHEM profile were unremarkable. Apparently she is back on amlodipine Allergies Allergy/AdvReac Type Severity Reaction Status Date / Time gabapentin Allergy Intermediate MOOD SWINGS Verified 03/02/25 15:33 lisinopril Allergy Intermediate Edema Verified 03/02/25 15:33 morphine Allergy Intermediate Heart races Verified 03/02/25 15:33 naproxen Allergy Intermediate Unknown Verified 03/02/25 15:33 paroxetine Allergy Intermediate MOOD SWINGS Verified 03/02/25 15:33 pregabalin [From Lyrica] Allergy Intermediate Unknown Verified 03/02/25 15:33 topiramate Allergy Intermediate MOOD SWINGS Verified 03/02/25 15:33 ibuprofen Allergy Mild Heart races Verified 03/02/25 15:33 salicylates Allergy Unknown Unknown Verified 03/02/25 15:33 Sulfa (Sulfonamide Allergy Unknown Rash Verified 03/02/25 15:33 Antibiotics) lidocaine AdvReac Severe Throat Verified 03/02/25 15:33 Swelling procaine AdvReac Severe THROAT Verified 03/02/25 15:33 SWELLING spironolactone AdvReac Severe muscle Verified 03/02/25 15:33 cramping hydralazine AdvReac Intermediate Tachycardia Verified 03/02/25 15:33 amlodipine AdvReac Mild edema Verified 03/02/25 15:33 gadobutrol AdvReac Mild VOMITING Verified 03/02/25 15:33 Home Medications Medication Instructions Recorded Confirmed Type cholecalciferol (vitamin D3) 125 125 mcg PO DAILY 11/06/24 03/02/25 History mcg (5,000 unit) capsule metoprolol tartrate 50 mg tablet 50 mg PO BID #180 tabs 11/12/24 03/02/25 Rx methocarbamol 750 mg tablet 750 mg PO TID PRN Muscle Spasm 01/07/25 03/02/25 History omeprazole 40 mg capsule,delayed 40 mg PO QAM #90 caps 02/15/25 03/02/25 Rx release furosemide 20 mg tablet 20 mg PO DAILY PRN Swelling 03/02/25 03/02/25 History Patient History Medical History Hx of myelitis (~09/16/98) Transverse Myelitis Right hip pain gets pain injections at [facility] Hx of migraines Fatty liver Ductal carcinoma in situ (DCIS) of left breast (~2019) XRT Anxiety no meds Cervical spondylosis with myelopathy and radiculopathy 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 Mother , Passed young after child No problems noted. Father , Passed age 63 of surgical complication Lung cancer Daughter Benign hypertension Daughter No problems noted. Son Benign hypertension Denies family history of Ovarian cancer Prostate cancer Myocardial infarction Breast cancer Colorectal cancer Social History Smoking Status: Former smoker Tobacco Type: Cigarettes Age Started Using Tobacco: 20; Age Quit Using Tobacco: 64; packs per day: 0.5; Cigarettes Per Day: 1 PPD; Second Hand Exposure: No; Do You Dip or Chew Tobacco: No; Hx Alcohol Use: Yes Alcohol type: wine Hx Substance Use: No Preferred Language: Mohawk Communication Ability: Effective Visual Impairment: No Limitations Hearing Ability: Dog Barber Required: No Beliefs That Will Affect Care: None marital status: Current Living Situation: Alone current occupational status: disabled How many Children do You have: 3 Other Information That Helps Us Care for You: No Feels Safe at Home: Yes Safety Concerns: Feels Safe At This Time Childhood Exposure to Second-Hand Smoke: Yes Diet: regular caffeine: Yes (Pepsi - 4 cans/day ) during the past year weight has: remained stable Dental Care, Regularly: Yes Physical Activity Frequency: Does not Exercise Seatbelt Use: always Sunscreen Use: No Assistive Devices: Cane, Denture - Upper and Denture - Lower Review of Systems Constitutional: no fever, no fatigue and no weakness Eyes: no diplopia, no eye pain and no worsening vision Ear, Nose, Mouth, Throat: + hearing loss; no ear pain, no tinnitus , no dizziness, no snoring, no hoarseness and no dysphagia Respiratory: no cough and no dyspnea Cardiovascular: no chest pain, no palpitations and no lightheadedness Gastrointestinal: no abdominal pain, no nausea and no vomiting Genitourinary: no dysuria, no urinary frequency and no urinary incontinence Musculoskeletal: + back pain, + neck pain and + radicular pain; no joint pain and no myalgia Integumentary: no rash and no lesions Neurologic: + localized weakness, + numbness and + h eadache(s); no gait abnormality, no generalized weakness, no tingling, no tremor(s), no abnormal movements, no abnormal speech, no confusion and no memory loss Psychiatric: no depression, no irritability, no anxiety, no difficulty concentrating, no confusion and no hallucinations Endocrine: no fatigue and no flushing Hematologic / Lymphatic: no easy bleeding and no easy bruising Allergy / Immunological: no urticaria and no problem reported Exam (Neuro) Physical Exam: The patient is right-handed. The patient is awake, alert, and attentive. Speech is nasal/dysarthric without any aphasia. She needs to look at you to communicate as she heavily depends on lipreading. Mentation and thought processes are intact, with full orientation and normal fund of knowledge. Mood and affect are normal and appropriate. Appearance and grooming are normal. Short and long-term memory are intact to conversation. Pupils are 4 mm bilaterally and reactive to light. Extraocular eye muscles are intact without nystagmus. Visual acuity and visual scott seem normal grossly to confrontation. There are no deficits to sensation in the face in all 3 distributions of the fifth cranial nerve bilaterally. Corneal reflexes are positive bilaterally. Facial strength and symmetry was normal bilaterally. Hearing seems intact grossly to voice and finger rub bilaterally. Palate moves well without asymmetry. There is normal sternocleidomastoid and trapezius strength bilaterally. Tongue is midline with good strength bilaterally. Neck has a full range of motion without discomfort. Cervical, thoracic, and lumbar spine are nontender to palpation. Stands sitting up and legs dangling is normal. With outstretched arms there is no drift. There are no resting, postural, or action tremors. There is no ataxia with finger to nose testing. There is good facility in the hands. No other abnormal involuntary movements are noted. Motor strength is 5/5 diffusely in the right upper EXTR including deltoids, biceps, triceps, brachioradialis, wrist flexors and extensors, photolithographer, and intrinsic hand muscles. Left upper extremity is 4+/5 diffusely pain closer to 4/5 in the deltoid. Motor strength is 5/5 diffusely in the right lower EXTR including hip flexors, quadriceps, hamstrings, gastrocnemius, tibialis anterior, tibialis posterior, and Peroneii muscles bilaterally. Left lower extremity is 4/5 diffusely. The limbs have good tone without rigidity or spasticity. There is no atrophy noted in the muscles. Muscle bulk is normal, there is no tenderness to palpation, no myotonia to percussion, and no fasciculations seen. Sensory examination reveals some decrease sensation to touch in the left upper extremity but not the face or leg. Reflexes are 2/4 in the biceps, triceps, brachioradialis, quadriceps, and Achilles tendons bilaterally. Toes are downgoing with plantar stimulation bilaterally. Peripheral pulses are present and of normal quality distally in all 4 limbs. There is no peripheral edema noted in the limbs. Results & Data Vital Signs (Past 12 Hours) Vital Signs Temp Pulse Pulse Resp BP Pulse Ox O2 Del Method 03/03/25 07:16 36.4 C L 67 18 189/89 H 96 Room Air 03/03/25 05:36 68 03/03/25 03:07 36.4 C L 66 18 167/85 H 96 Room Air 03/02/25 23:00 65 03/02/25 22:51 36.6 C 59 L 18 178/105 H 98 Room Air PG Care Time/CCT Total # of Minutes Spent Total Time Spent with Patient: Total time spent is greater than 50% in coordination of care (as documented) at patient's floor/unit and/or counseling patient: Coding Level of Care Code 97267 INT INP/OBS CARE MIN Diagnoses Left spastic hemiparesis G81.14 Hypertension I10 Multiple sclerosis G35 Classic migraine with aura G43.109 Time Spent (min) 60
[2025-03-03] MEDS: CHOLECALCIFEROL 125 MCG (5,000 UNITS) TAB PO SCH (08:58)
--- NOTE | 2025-03-03 14:54 | XCELERA ---
[id number] \\[id number]
[2025-03-03] MEDS: HYDROCODONE/ACETAMOPHEN 5/325MG TAB PO PRN (16:11)
--- NOTE | 2025-03-03 18:45 | Hospitalist Progress Note ---
Date of Service March 03, 2025 Assessment & Plan (1) Left arm pain: (2) Hypertension: (3) Classic migraine with aura: (4) Multiple sclerosis: Plan This patient is a 69-year-old female with a history of uncontrolled HTN, MS, H/o transverse myelitis with left-sided spastic hemiparesis, migraines, obesity, prediabetes, lumbar radiculopathy, OA, anxiety, congenital deafness (reads lips), GERD, and ductal carcinoma in situ of left breast, who p/w with left upper extremity shocklike pain and weakness/heaviness lasting approximately 5 min. Also with headache x 2 days and severely elevated BPs. She is admitted for a workup for CVA and for hypertensive emergency. #LUE pain/weakness-MRI brain negative for stroke, MRI cervical spine with white matter lesions. Seen by neurology who thinks this is likely more related to cervical spine issues and did not MS flare. She has chronic neck pain and spasms. CTA Chest negative. Cardiac ischemic eval negative. Lipid panel excellent, HgbA1c normal, and no events on telemetry. Echocardiogram with bubble study negative. Symptoms have resolved. - Give Robaxin as needed for neck spasm #Hypertensive emergency/HTN-BPs severely elevated which may be contributing to headache and/or neck spasms from tension? She also recently started on eplerenone and discontinued amlodipine. Follows with HTN clinic. Has had numerous allergies/adverse side effects to various drugs.Home regimen on admission was metoprolol 50mg po bid and eplerenone which was stopped on day of admission for headache. Has had extensive secondary HTN workup as outpt and no cause found. Blood pressures are now improving with changes in medications -increased metoprolol to 75mg po bid - Restarted amlodipine 2.5mg po qAM and 1 now increased to 2.5 mg p.o. twice daily--> in the past, was on this for 30 years and had ankle swelling at high doses the last 6 years, hence it was discontinued. However, has intolerances/allergies so not many other options left - Could further increase amlodipine or add Hytrin in the future if needed which she has not tried before - Could also try minoxidil -monitor BPs and if continue to improve, could be stable for discharge on 03/04 #H/O MS/Migraines/spastic hemiparesis-follows with Neurology, has been migraine free for over a year until now. Eplerenone may have triggered her migraine but hard to say. Migraine not improved with Tylenol but now improved with hydrocodone -acetaminophen prn headache and add hydrocodone/APAP -continue muscle relaxer prn-give a dose now as discussed with nursing for left- sided neck spasm #Obesity BMI 38.9/Prediabetes-no acute issues, HgbA1c now normal at 5.6% -start BSGs if has hyperglycemia on AM labs -needs weight loss #GERD-continue PPI DVT proph-Lovenox Dispo-continued stay on PCU, but likely discharge to home on 03/04 if continues to improve with her blood pressure Admission and Anticipated Discharge Date Admission Date: March 02, 2025 Anticipated date of discharge: 03/04/25 Subjective Patient continues to have a headache for most of the day but is now resolved after taking hydrocodone after Tylenol did not help. Denies shortness of breath which is improved from previous. I discussed her care with neurology. Telemetry with normal sinus rhythm with rates in the 60s to 70s Physical Exam Constitutional: WD/WN, vitals as above ENMT: Ears: + hearing impairment Neck: trachea midline, no thyromegaly Respiratory: normal respiratory effort, lungs clear to auscultation Cardiovascular: RRR, no murmur, no edema Chest (Breasts): Chest: normal inspection of chest Musculoskeletal: Extremities: extremities normal to inspection; no cyanosis and no clubbing Skin: no rashes, warm and dry Neurologic: CN's II-XI intact bilaterally (except for hearing loss), moves all extremities and awake; no focal motor deficits Speech / Cognition: no expressive aphasia and normal cognition Psychiatric: A+Ox3, euthymic affect Lymphatic: no lymphedema Results & Data Results & Data Vital Signs (Past 12 Hours) Vital Signs Temp Pulse Pulse Resp BP Pulse Ox O2 Del Method 03/03/25 15:07 36.2 C L 62 18 164/84 H 97 Room Air 03/03/25 13:06 60 03/03/25 11:22 36.7 C 59 L 18 176/99 H 96 Room Air 03/03/25 10:22 188/93 H 03/03/25 10:19 212/99 H 03/03/25 07:16 36.4 C L 67 18 189/89 H 96 Room Air Laboratory Results CBC, BMP, HgbA1c, lipid panel reviewed Diagnostic Findings Brain MRI reviewed Cervical spine MRI reviewed Echocardiogram reviewed PG Care Time/CCT Total # of Minutes Spent Total Time Spent with Patient: Total time spent is greater than 50% in coordination of care (as documented) at patient's floor/unit and/or counseling patient: Coding Level of Care Code 85874 SUB INP/OBS CARE 2/35MIN Diagnoses Left arm pain M79.602 Hypertension I10 Classic migraine with aura G43.109 Multiple sclerosis G35
[2025-03-04 06:23] LABS: Hematocrit (blood only) 44.2 % (37.0-47.0); Hemoglobin 14.4 g/dl (12.0-16.0); Immature Granulocytes # (auto) 0.02 K/uL (0.01-0.20); Immature Granulocytes % (auto) 0.3 %; Mean Corpuscular Hemoglobin 27.2 pg (25.0-34.0); Mean Corpuscular Volume 83.6 fL (80.0-100.0); Platelet Count 193 K/uL (130-400); RDW Standard Deviation 41.9 fL (36.4-46.3); Red Blood Count 5.29 M/uL (4.20-5.40); White Blood Count 7.35 K/ul (4.8-10.8)
[2025-03-04 07:00] LABS: Anion Gap 7.0 (3-11); Blood Urea Nitrogen 12.0 mg/dl (6-23); Calcium 8.7 mg/dl (8.6-10.3); Carbon Dioxide 29.0 mmol/L (21-32); Chloride 105.0 mmol/L (98-107); Creatinine Clr Calc Pharmacy 115.4 ml/min; Glucose 98.0 mg/dl (70-99(Fasting)); Magnesium 2.0 mg/dl (1.7-2.4); Potassium 3.8 mmol/L (3.5-5.1); Sodium 141.0 mmol/L (136-145)
--- NOTE | 2025-03-04 08:12 | Neurology Progress Note ---
Date of Service March 04, 2025 Assessment & Plan (1) Left spastic hemiparesis: (2) Hypertension: (3) Multiple sclerosis: (4) Classic migraine with aura: Plan Patient has some neurologic symptoms acutely on March 02. I suspect a cervical radicular issue in the left upper extremity explaining the 5 minutes of left arm pain. She has not had any recurrence of this. The patient has a history of cervical spinal cord lesions that appeared in the and had been stable/same ever since. This has resulted in a chronic left spastic hemiparesis with dysesthesias and numbness. This has been very chronic and unchanged. Patient has some dysarthria but this is secondary to her lifelong hearing loss and is not new. Patient was given a tentative diagnosis of MS in the late /early . This diagnosis never actually "panned out" and she never did require disease- modifying therapy. There was some form of cervical spinal cord demyelinating disease and has been in remission/stable for decades. MRI of the brain showed minimal old small vessel ischemic disease and no new or active lesions (no stroke). MRI of the cervical spine showed the cord lesions as before but these were unchanged and did not enhance. There was diffuse degenerative changes with disc bulge at C5-6 but no surgical lesions were present. Actually, I think much of her new symptoms are related to her significant hypertension. Her blood pressure is still elevated Patient has a history of migraine headaches which are improved and stable. The recent hypertension and eplerenone likely triggered her most recent headache event. Her headache today is minimal. Overall, she has improved and is stable from a neurologic standpoint. Recommendations: 1. Control blood pressure as you are doing, aiming for mean arterial pressure closer to 100. 2. Increase activity as able. 3. I see no need for additional neurologic testing or treatment at this time. Treat headache with Tylenol as needed. 4. Follow-up as an outpatient in neurology with neurology PA (has appointment 03-16-25 at 10AM with Barb Valero PA-C). 5. Apparently seeing Y[facility] HOBBS, [facility], as an outpatient, for blood pressure control as well Overall, I spent a total of 60 minutes with this case including review of records, review of MRI films, direct evaluation of the patient at bedside, report generation, and discussion of the case with the patient and RN at bedside and Dr. Loomis including differential diagnosis and treatment options. Admission and Anticipated Discharge Date Admission Date: March 02, 2025 Subjective Patient has a very mild, dull headache on the top of her head only. She denies dizziness or lightheadedness, vision issues, confusion, balance problems, or pain. She does not have any weakness or numbness in the arms or legs. Echocardiogram was unremarkable. CBC and CHEM profile were unremarkable. Blood pressure this morning was 193/96 and she is afebrile. Results & Data Vital Signs (Past 12 Hours) Vital Signs Temp Pulse Pulse Resp BP Pulse Ox O2 Del Method 03/04/25 07:41 36.4 C L 74 193/96 H 96 Room Air 03/04/25 05:13 63 03/04/25 03:21 36.5 C 76 18 114/72 93 Room Air 03/03/25 23:00 65 03/03/25 22:58 36.4 C L 67 20 159/83 H 95 Room Air Exam (Neuro) Physical Exam: She is awake and alert. Speech and hearing are as before. Mood and affect are normal and appropriate. Thought processes are intact to conversation Extraocular eye muscles are intact without nystagmus. There is no facial droop. Tongue is midline. Coordination is normal in the arms. There is good strength and no ataxia or tremor. Stance sitting up with feet dangling is normal PG Care Time/CCT Total # of Minutes Spent Total Time Spent with Patient: Total time spent is greater than 50% in coordination of care (as documented) at patient's floor/unit and/or counseling patient: Coding Level of Care Code 62191 SUB INP/OBS CARE 2/35MIN Diagnoses Left spastic hemiparesis G81.14 Hypertension I10 Multiple sclerosis G35 Classic migraine with aura G43.109
--- NOTE | 2025-03-04 14:53 | Discharge Summary ---
Discharge Summary Date of Service March 04, 2025 Principal Dx & Hospital Course #1 = Principal Diagnosis (1) Left arm pain: (2) Hypertension: (3) Classic migraine with aura: (4) Multiple sclerosis: Plan This patient is a 69-year-old female with a history of uncontrolled HTN, MS, H/o transverse myelitis with left-sided spastic hemiparesis, migraines, obesity, prediabetes, lumbar radiculopathy, OA, anxiety, congenital deafness (reads lips), GERD, and ductal carcinoma in situ of left breast, who p/w with left upper extremity shocklike pain and weakness/heaviness lasting approximately 5 min. Also with headache x 2 days and severely elevated BPs. She was admitted for a workup for CVA and for hypertensive urgency. #LUE pain/weakness-MRI brain negative for stroke, MRI cervical spine with white matter lesions. Seen by neurology who thinks this is likely more related to cervical spine issues and did not MS flare. She has chronic neck pain and spasms. CTA Chest negative. Cardiac ischemic eval negative. Lipid panel excellent, HgbA1c normal, and no events on telemetry. Echocardiogram with bubble study negative. Symptoms have resolved. - Give Robaxin as needed for neck spasm #Hypertensive urgency/HTN-BPs severely elevated which may be contributing to headache and/or neck spasms from tension? She also recently started on eplerenone and discontinued amlodipine. Follows with HTN clinic. Has had numerous allergies/adverse side effects to various drugs. Home regimen on admission was metoprolol 50mg po bid and eplerenone which was stopped on day of admission for headache. Has had extensive secondary HTN workup as outpt and no cause found. Blood pressures are now much improved with changes in medications -increased metoprolol to 75mg po bid -Started amlodipine 2.5mg po twice daily--> in the past, was on this for 30 years and had ankle swelling at high doses the last 6 years, hence it was discontinued. However, has intolerances/allergies so not many other options left - Can take furosemide 20 mg daily as needed for ankle swelling related to amlodipine - Could further increase amlodipine or add Hytrin in the future if needed which she has not tried before - Could also try minoxidil as an outpatient-defer to hypertension clinic -monitor BPs at home and follow-up with hypertension clinic as an outpatient #H/O MS/Migraines/spastic hemiparesis-follows with Neurology, has been migraine free for over a year until now. Eplerenone may have triggered her migraine but hard to say. Migraine not improved with Tylenol but now improved with hydrocodone and methocarbamol for neck spasms -acetaminophen prn headache -continue muscle relaxer prn - Discontinued eplerenone #Obesity BMI 38.9/Prediabetes-no acute issues, HgbA1c now normal at 5.6% -needs weight loss #GERD-continue PPI DVT proph-Lovenox Dispo-stable for discharge to home. Discussed care with neurology on the day of discharge Notes For Next Care Provider Medication Changes From Visit Added amlodipine 2.5 mg p.o. twice daily Increase metoprolol to tartrate to 75 mg p.o. twice daily Admission HPI Per Admitting Provider This patient is a 69-year-old female with a history of uncontrolled HTN, MS, H/o transverse myelitis with left-sided spastic hemiparesis, migraines, obesity, prediabetes, lumbar radiculopathy, OA, anxiety, congenital deafness (reads lips), and ductal carcinoma in situ of left breast, who presents to the ED with left upper extremity shocklike pain and weakness/heaviness lasting approximately 5 min. Her symptoms started at 11 AM on the day of admission and she presented to the ED at 1300. She was sitting at rest when symptoms occurred and it went away with no intervention. She does report having a headache the last 2 days slightly different from her usual migraines. She has not had a bad headache like this in over a year. She started taking eplerenone about 1 mo ago and has been feeling unwell for the last 2 weeks. Her BPs have been in the 190s systolic for the last month and she called into her HTN provider's office who recommended she stop taking the eplerenone in case was causing her the headache. She also reports some SOB today. In the ED, her CTA head and neck, CT head were negative, but BP was severely elevated at 220 systolic and 130 diastolic. She was given IV metoprolol and had some mild improvement in her BP.ECG was without ischemic changes and troponin negative. She will be admitted for a workup for CVA and for hypertensive emergency. Discharge Exam Constitutional WD/WN, vitals as above ENMT Ears: + hearing impairment Neck trachea midline, no thyromegaly Respiratory normal respiratory effort, lungs clear to auscultation Cardiovascular RRR, no murmur, no edema Chest (Breasts) Chest: normal inspection of chest Gastrointestinal (Abdomen) normal bowel sounds, soft, nontender, no hepatosplenomegaly Musculoskeletal Extremities: extremities normal to inspection; no cyanosis and no clubbing Skin no rashes, warm and dry Neurologic CN's II-XI intact bilaterally (except for hearing loss), moves all extremities and awake; no focal motor deficits Speech / Cognition: no expressive aphasia and normal cognition Psychiatric A+Ox3, euthymic affect Lymphatic no lymphedema Discharge Plan Discharge Items Patient Disposition: Home - Self-Care Reason For Visit: CVA WORKUP Discharge Diagnosis: Hypertensive urgency Left upper extremity pain/weakness secondary to cervical spine issues Migraine headache Condition on Discharge: Good Activity: As commented below Lifting: Gradually increase as tolerated Bathing: No limitations Exercise/Sports: Gradually increase as tolerated Non-emergency contact: Primary Care Provider Call non-emergency contact if: you have any medication questions and your symptoms worsen Follow-up/Referrals: Axel Underwood DO [Primary Care Provider] - (Follow-up within 1-2 weeks) Diet: Low Sodium (2gm) Addtl Attending Provider Instructions: You are admitted with left upper extremity pain and weakness that was likely due to to your issues with chronic neck pain. You had a brain MRI that did not show a stroke. You had a cervical spine MRI that showed the same white matter lesions consistent with a history of MS. The neurologist did not think there was anything further to do and your symptoms resolved. Your blood pressures were severely elevated. You were started on amlodipine twice a day and can take furosemide as needed for ankle swelling. Your metoprolol dose was also increased. Please follow-up with the hypertension clinic as scheduled. You can continue to take Tylenol as needed for your headache as well as muscle relaxers for neck spasms. Pending Studies at Discharge: No Stand-Alone Forms: My [employer], Smoking Cessation Medications and DC Order Prescriptions: New amlodipine 5 mg Tablet 2.5 mg PO BID Qty: 30 0RF acetaminophen 325 mg Tablet 650 mg PO Q4H PRN (Reason: pain) Qty: 30 0RF Continued omeprazole 40 mg capsule,delayed release(DR/EC) 40 mg PO QAM Qty: 90 1RF cholecalciferol (vitamin D3) 125 mcg (5,000 unit) capsule 125 mcg PO DAILY methocarbamol 750 mg tablet 750 mg PO TID PRN (Reason: Muscle Spasm) furosemide 20 mg tablet 20 mg PO DAILY PRN (Reason: Swelling) Changed metoprolol tartrate 50 mg tablet 75 mg PO BID Qty: 90 1RF Discharge Orders: Discharge Order (Routine); Ordered 03/04/25 Ordered By: Gracie Loomis Admission Data Admit Date/Time: 03/02/25 17:09 Attending Provider: Gracie Loomis Admit Provider: Gracie Loomis Primary Care Provider: Axel Underwood Other Providers: Danny Figueroa; Gracie Loomis Hospital Stay Data Consultations 03/02/25 15:39 ED Decision to Admit Stat 03/02/25 18:24 Consult Neurology Routine Diagnostic Imagining Performed 03/02/25 13:28 CT angio head w con Stat CT angio neck with con Stat CT head/brain wo con Stat 03/02/25 13:29 CT angio chest PE protocol Stat 03/02/25 17:09 MR brain wo con Stat MRI Cervical [MR cervical spine wo con] Stat Echocardiogram Pending Results Patient Have Any Pending Studies at Discharge: No Discharge Instructions Given to Patient (Per Discharging Provider) You are admitted with left upper extremity pain and weakness that was likely due to to your issues with chronic neck pain. You had a brain MRI that did not show a stroke. You had a cervical spine MRI that showed the same white matter lesions consistent with a history of MS. The neurologist did not think there was anything further to do and your symptoms resolved. Your blood pressures were severely elevated. You were started on amlodipine twice a day and can take furosemide as needed for ankle swelling. Your metoprolol dose was also increased. Please follow-up with the hypertension clinic as scheduled. You can continue to take Tylenol as needed for your headache as well as muscle relaxers for neck spasms. Total Time Total Time Spent Total Time Spent (In Minutes): 35 minutes Total Time Includes: Examination of the Patient, Discharge Planning, Medication Reconciliation and Communication With Other Providers Coding Level of Care Code 40117 INP/OBS DISCH >30 MIN Diagnoses Left arm pain M79.602 Hypertension I10 Classic migraine with aura G43.109 Multiple sclerosis G35
[2025-03-04 14:54] VITALS: BP 168/85; PULSE 60; RESP 18; TEMP 97.5; O2SAT 95
== END 2025-03-04 16:21 | disposition home or self-care (01) ==
LOC: 2S 12:56 → ED 12:56 → 2S 17:55